=== PATIENT | male | born 1970 | race Caucasian/White ===

== ENCOUNTER → 2021-06-07 09:23 | Outpatient (BNVA) | payer OTHER, SELFPAY | PROVIDERS: PCP Internal Medicine; Visit Provider Physician Assistant Medical | DX: S33.9XXA Sprain of unspecified parts of lumbar spine and pelvis, initial encounter (principal); X50.0XXA Overexertion from strenuous movement or load, initial encounter | CPT/HCPCS: 99203 ==

== ENCOUNTER → 2021-06-10 10:57 | Outpatient (BNVA) | payer OTHER, SELFPAY | PROVIDERS: PCP Internal Medicine; Visit Provider Physician Assistant Medical | DX: S33.9XXD Sprain of unspecified parts of lumbar spine and pelvis, subsequent encounter (principal); X58.XXXD Exposure to other specified factors, subsequent encounter | CPT/HCPCS: 72110; 99214 ==

== ENCOUNTER → 2021-06-15 11:24 | Outpatient (BNVA) | payer OTHER, SELFPAY | PROVIDERS: PCP Internal Medicine; Visit Provider Physician Assistant Medical | DX: S33.9XXD Sprain of unspecified parts of lumbar spine and pelvis, subsequent encounter (principal); X58.XXXD Exposure to other specified factors, subsequent encounter | CPT/HCPCS: 99213 ==

== ENCOUNTER → 2021-06-21 09:59 | Outpatient (BNVA) | payer OTHER, SELFPAY | PROVIDERS: PCP Internal Medicine; Visit Provider Physician Assistant Medical | DX: S33.9XXD Sprain of unspecified parts of lumbar spine and pelvis, subsequent encounter (principal); X58.XXXD Exposure to other specified factors, subsequent encounter | CPT/HCPCS: 99213 ==

== ENCOUNTER 2021-06-21 11:00 | Outpatient (RCR) | payer OTHER, SELFPAY ==
--- NOTE | 2021-06-09 15:26 | MHC.PT.EP ---
[facility] [place] Office [place] [facility] [place] [facility] [address] Genoveva Clark [address] [phone] F: [phone] F: [phone] F: [phone] F: [phone] Physical Therapy Plan of Care Date of Evaluation: Date of Surgery: no surgery Diagnosis: acute lumbosacral pain Assessment: The patient has 50% reduced lumbar mobility in all directions, reduced leg strength globally which appears to be apprehension. Pt has poor bed mobility, poor squatting mechanics, poor sitting posture noted, which may be aggravating his pain. He will benefit from education of sitting posture, bed mobility training, and body mechanics for lifting and work related activities. Frequency and Duration: The patient will be seen 2x/week x 4 weeks Short Term Goals: 2 weeks 1.Pt to able to demonstrate proper sitting posture with the use of a lumbar roll to decrease aggravating factors. 2.Pt to be able to demonstrate proper posture for common leisure activities such as crocheting and phone/tablet use. 3.For the patient to demonstrate proper upright sitting posture with use of the lumbar roll to improve compliance and carryover. Blind Installer Goals: 4 weeks - 1.The patient to demonstrate proper lifting mechanics for household chore activities to show improved functional mobility. 2.The patient to report no leg or hip pain in order to show centralization of pain and reduction of lumbar derangement 3. Pt to be able to demonstrate self management of lumbar pain by demonstration of HEP. Treatment Plan: Modalities to reduce pain, spasms and effusion. Manual therapy to restore motion and function. Therapeutic exercise to improve strength and flexibility. Neuromuscular re-education for posture and balance. Therapeutic activities to return to functional activities of daily living. Electronically signed by: Trupti Holden PT DPT Please sign and return to therapist. Thank you for your referral.
== END 2021-11-09 13:54 | disposition home or self-care (01) ==
LOC: HO.PT 11:00
PROVIDERS: Visit Provider Physician Assistant Medical
DX: S39.012D Strain of muscle, fascia and tendon of lower back, subsequent encounter (principal)
CPT/HCPCS: 97110; 97112; 97162

== ENCOUNTER → 2021-06-29 09:57 | Outpatient (BNVA) | payer OTHER, SELFPAY | PROVIDERS: PCP Internal Medicine; Visit Provider Physician Assistant Medical | DX: S33.9XXD Sprain of unspecified parts of lumbar spine and pelvis, subsequent encounter (principal); X58.XXXD Exposure to other specified factors, subsequent encounter | CPT/HCPCS: 99213 ==

== ENCOUNTER → 2021-07-08 10:38 | Outpatient (BNVA) | payer OTHER, SELFPAY | PROVIDERS: PCP Internal Medicine; Visit Provider Physician Assistant Medical | DX: S33.9XXD Sprain of unspecified parts of lumbar spine and pelvis, subsequent encounter (principal); X58.XXXD Exposure to other specified factors, subsequent encounter | CPT/HCPCS: 99213 ==

== ENCOUNTER 2021-07-14 17:17 | Outpatient (REF) | payer OTHER, SELFPAY ==
--- NOTE | ~2021-07-14 | MR_ITS ---
EXAMINATION: MR LUMBAR SPINE WITHOUT CONTRAST CLINICAL INFORMATION: Lower back pain. Lifting injury on 05/31/2021. COMPARISON: Most recent lumbar spine radiographs dated 06/10/2021. TECHNIQUE: MRI of the lumbar spine was obtained using routine sequences without contrast. FINDINGS: VERTEBRAL BODIES AND PARASPINAL STRUCTURES: Straightening of the normal lumbar lordosis, which may be positional or related to muscular spasm. Minimal grade 1 anterolisthesis of L5 on S1. No acute fracture or subluxation. No loss of vertebral body height. Loss of intervertebral disc height with disc desiccation at L4-L5 and L5-S1. Modic type II degenerative endplate changes at L4-L5. No additional abnormal marrow signal. The visualized paraspinal soft tissues are unremarkable. CONUS MEDULLARIS AND CAUDA EQUINA: Normal, terminating at the level of L1. SPINAL LEVELS: T12-L1: No significant disc bulge. No central canal or neural foraminal stenosis. L1-L2: Broad-based disc bulge with bilateral facet arthropathy. No significant central canal or neural foraminal stenosis. L2-L3: Broad-based disc bulge with a superimposed right subarticular disc protrusion which abuts the exiting right L2 nerve root. Associated annular fissuring. Bilateral facet arthropathy with mild right and minimal left neural foraminal stenosis. L3-L4: Broad-based disc bulge with posterior annular fissuring. Superimposed left subarticular/extraforaminal disc protrusion which abuts the exiting left L3 nerve root. Bilateral facet arthropathy with [id number] bilateral neural foraminal stenosis. L4-L5: Broad-based disc bulge with posterior annular fissuring and a superimposed left paracentral disc protrusion which contacts and displaces the traversing left L5 nerve root as well as abuts the traversing right L5 nerve root. Bilateral facet arthropathy with moderate left and mild right neural foraminal stenosis. L5-S1: Broad-based disc bulge with a shallow posterior central disc protrusion with bilateral facet arthropathy and mild bilateral neural foraminal stenosis. MR/MR lumbar spine wo con IMPRESSION: 1. Broad-based disc bulge at L3-L4 with a superimposed left subarticular/extraforaminal disc protrusion which abuts the exiting left L3 nerve root. Bilateral facet arthropathy with [id number] bilateral neural foraminal stenosis. 2. Broad-based disc bulge at L2-L3 with a right subarticular disc protrusion abutting the exiting right L2 nerve root. Bilateral facet arthropathy with mild right and minimal left neural foraminal stenosis. 3. Broad-based disc bulge at L4-L5 with a left paracentral disc protrusion contacting and displacing the left L5 nerve root as well as abutting the traversing right L5 nerve root. Bilateral facet arthropathy with moderate left and mild right neural foraminal stenosis. 4. Broad-based disc bulge at L5-S1 with a shallow posterior central disc protrusion and bilateral facet arthropathy causing mild bilateral neural foraminal stenosis.
== END 2021-07-14 17:18 | disposition home or self-care (01) ==
LOC: HO.MRI 17:17
PROVIDERS: PCP Internal Medicine; Visit Provider Internal Medicine
DX: S39.012D Strain of muscle, fascia and tendon of lower back, subsequent encounter (principal)
CPT/HCPCS: 72148

== ENCOUNTER → 2021-07-20 10:06 | Outpatient (BNVA) | payer OTHER, SELFPAY | PROVIDERS: PCP Internal Medicine; Visit Provider Physician Assistant Medical | DX: S33.9XXD Sprain of unspecified parts of lumbar spine and pelvis, subsequent encounter (principal); X58.XXXD Exposure to other specified factors, subsequent encounter | CPT/HCPCS: 99213 ==